=== PATIENT | male | born 1955 | race Caucasian/White ===

== ENCOUNTER 2016-12-02 15:10 | Emergency (ER) | payer OTHER ==
[2016-12-02 15:27] VITALS: BP 135/80
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
== END 2016-12-02 15:59 ==
LOC: UCEAST 15:10
DX: M54.2 Cervicalgia (principal); V43.52XA Car driver injured in collision with other type car in traffic accident, initial encounter; F17.210 Nicotine dependence, cigarettes, uncomplicated
CPT/HCPCS: 99212; G0463

== ENCOUNTER 2021-08-30 21:49 | Inpatient (IN) ==
[2021-08-30] MEDS ORDERED: fentaNYL 250 mcg/5 ml 50 MCG/ML 5 ml VIAL (250 MCG) ONE (21:54)
[2021-08-30] MEDS ORDERED: Midazolam 10 mg/10 ml VIAL 1 mg/ml 10 ml VIAL (10 mg) ONE (21:54)
[2021-08-30] MEDS ORDERED: Succinylcholine 200 mg VIAL 20 mg/ml 10 ml VIAL (200 mg) ONE (21:54)
[2021-08-30] MEDS ORDERED: Ketamine HCL 50 mg/ml 10 ml VIAL (500 MG) ONE (21:54)
[2021-08-30] MEDS ORDERED: Succinylcholine 200 mg VIAL 20 mg/ml 10 ml VIAL (200 mg) IV ONE (22:03)
[2021-08-30] MEDS ORDERED: Etomidate 20 mg/10 ml 2 MG/ML 10 ml VIAL IV ONE (22:03)
[2021-08-30] MEDS ORDERED: Albuterol 0.5% CONC CONTINUOUS NEB.SOL 5 mg/ml 20 ml BOT INH ONE (22:04)
[2021-08-30 22:09] LABS: Hematocrit 47 % (42-52); Hemoglobin 15.6 g/dL (14.0-18.0); Mean Corpuscular HGB Conc 33 g/dL (31-36); Mean Corpuscular Hemoglobin 33 pg (27-31); Mean Corpuscular Volume 98 fL (80-94); Mean Platelet Volume 7.1 fL (7.4-10.4); Platelet Count 255 10^3/uL (150-450); Red Blood Count 4.76 10^6 /uL (4.18-5.48); Red Cell Distribution Width 14 % (10-15); White Blood Count 13.1 10^3/uL (3.5-10.8)
[2021-08-30] MEDS ORDERED: Propofol 10 MG/ML 20 ML BTL ONE (22:16)
[2021-08-30 22:25] LABS: ABS Basophils 0.1 10^3/ul (0-0.2); ABS Lymphocytes 2.9 10^3/ul (1.0-4.8); ABS Monocytes 1.7 10^3/ul (0-0.8); ABS Neutrophils 8.4 10^3/ul (1.5-7.7); Lymphocyte % 22.1 %
[2021-08-30 22:32] LABS: Albumin 4.4 g/dL (3.2-5.2); Calcium 9.9 mg/dL (8.6-10.3); Potassium 4.9 mmol/L (3.5-5.0); Total Bilirubin 0.7 mg/dL (0.2-1.0)
[2021-08-30 22:38] LABS: Albumin/Globulin Ratio 1.3 (1-3); Globulin 3.4 g/dL (2-4); Total Protein 7.8 g/dL (6.4-8.9); eGFR CKD-EPI 87.7 (>60)
[2021-08-30] MEDS ORDERED: Propofol 10 mg/ml 100 ML BTL 100 ML IV ONE (23:00)
[2021-08-30] MEDS ORDERED: Ketamine HCL 50 mg/ml 10 ml VIAL (500 MG) IV ONE (23:00)
[2021-08-30] MEDS ORDERED: Midazolam 5 mg/5 ml VIAL 1 mg/ml 5 ml VIAL (5 mg) IV SLOW PU ONE (23:01)
[2021-08-30 23:32] LABS: High Sensitivity Troponin 1 Hr 19 pg/mL (<20)
[2021-08-30] MEDS ORDERED: NS 0.9% 1000 ml BAG 1,000 ML IV SCH (23:45)
[2021-08-30] MEDS ORDERED: Ondansetron 4 mg VIAL 2 MG/ML 2 ml VIAL IV PRN (23:47)
[2021-08-31] MEDS ORDERED: NS 0.9% 1000 ml BAG 1,000 ML IV ONE (00:26)
[2021-08-31] MEDS ORDERED: Acetaminophen IV 1 GM/100ML 100 ML IV SCH (00:30)
[2021-08-31] MEDS ORDERED: Ketamine HCL 50 mg/ml 10 ml VIAL (500 MG) IV ONE (00:32)
[2021-08-31 00:56] LABS: PCO2 Arterial 65 mmHg (35-45); PO2 Arterial 105 mmHg (80-100)
[2021-08-31] MEDS: Propofol 10 mg/ml 100 ML BTL 100 ML IV ONE ×3 (01:11→11:39)
[2021-08-31] MEDS ORDERED: NS 0.9% 500 ml BAG 500 ML IV ONE (01:36)
[2021-08-31] MEDS ORDERED: Dextran 70/Hypromellose Tears Eye Drops 15 ml BTL (for Artificials Tears) BOTH EYES PRN (01:39)
[2021-08-31] MEDS: cefTRIAXone 1 gm/50 mL D5W 1 GM/50 ML BAG IV SCH ×2 (02:21→22:09)
[2021-08-31] MEDS: Enoxaparin 40 MG/0.4 ML SYR SUBCUT SCH ×2 (02:21→22:10)
[2021-08-31] MEDS: Famotidine IV 10 MG/ML 2 ml VIAL (20 mg) IV SLOW PU SCH ×3 (02:21→22:10)
[2021-08-31 02:47] LABS: Urine Appearance Cloudy; Urine Bilirubin Negative (Negative); Urine Blood 1+ (Negative); Urine Color Amber; Urine Glucose Negative (Negative); Urine Ketones 1+ (Negative); Urine Nitrite Negative (Negative); Urine Protein 2+(100 mg/dL) (Negative); Urine Specific Gravity 1.018 (1.002-1.030); Urine Urobilinogen Positive (Negative)
[2021-08-31 02:53] LABS: Urine Bacteria Absent (Absent); Urine Red Blood Cell 2+(6-10/hpf) (Absent); Urine Squamous Epithelial Cell Present (Absent); Urine White Blood Cell 1+(6-10/hpf) (Absent)
[2021-08-31] MEDS: DOXYcycline 100 MG in NS 0.9% 250 ml 250 ML IVPB SCH ×2 (03:18→09:56)
[2021-08-31] MEDS ORDERED: Dexmedetomidine 200 mcg/2 ml 2 ml VIAL (200 mcg) ONE (04:12)
[2021-08-31] MEDS ORDERED: Dexmedetomidine 1,000 MCG in NS 0.9% 250 ml 240 ML IV SCH (05:00)
[2021-08-31 05:06] LABS: ABS Lymphocytes 0.4 10^3/ul (1.0-4.8); ABS Monocytes 0.4 10^3/ul (0-0.8); Hematocrit 30 % (42-52); Lymphocyte % 5.9 %; Mean Corpuscular HGB Conc 33 g/dL (31-36); Mean Corpuscular Hemoglobin 33 pg (27-31); Mean Corpuscular Volume 99 fL (80-94); Mean Platelet Volume 6.8 fL (7.4-10.4); Platelet Count 176 10^3/uL (150-450); Red Blood Count 3.05 10^6 /uL (4.18-5.48); Red Cell Distribution Width 13 % (10-15); White Blood Count 6.8 10^3/uL (3.5-10.8)
[2021-08-31] MEDS: Chlorhexidine MOUTHWASH 0.12% 15 ML UDC TOPICAL SCH ×5 (05:30→21:00)
[2021-08-31 05:48] LABS: Blood Urea Nitrogen 13 mg/dL (6-24); Glucose 72 mg/dL (70-100); Sodium 143 mmol/L (135-145); eGFR CKD-EPI 122.4 (>60)
[2021-08-31 05:53] LABS: Anion Gap 6 mmol/L (2-11); CO2 Carbon Dioxide 14 mmol/L (22-32); Calcium < 4.0 mg/dL (8.6-10.3); Chloride 123 mmol/L (101-111); Potassium 2.2 mmol/L (3.5-5.0)
[2021-08-31] MEDS: Albuterol/Ipratropium NEB.SOL (2.5/0.5 MG) 3 ML NEB.SOLN INH SCH ×9 (06:29→23:14)
[2021-08-31 07:08] LABS: Calcium 8.7 mg/dL (8.6-10.3); Potassium 4.3 mmol/L (3.5-5.0); eGFR CKD-EPI 91.2 (>60)
[2021-08-31] MEDS: methylPREDNISolone SOD 40 mg/ml 1 ml VIAL IV SCH ×2 (08:48→17:57)
[2021-08-31] MEDS ORDERED: Rocuronium 50 mg VIAL 10 mg/ml 5 ml VIAL (50 mg) ONE (10:35)
[2021-08-31] MEDS: fentaNYL 100 mcg/2 ml 50 MCG/ML VIAL ONE ×2 (10:36→10:51)
[2021-08-31] MEDS ORDERED: Propofol 10 mg/ml 100 ML BTL 100 ML ONE (10:58)
[2021-08-31] MEDS ORDERED: fentaNYL 100 mcg/2 ml 50 MCG/ML VIAL ONE (11:16)
[2021-08-31] MEDS ORDERED: fentaNYL 100 mcg/2 ml 50 MCG/ML VIAL IV SLOW PU ONE (11:54)
[2021-08-31] MEDS ORDERED: Rocuronium 50 mg VIAL 10 mg/ml 5 ml VIAL (50 mg) IV ONE (11:55)
[2021-08-31 12:08] LABS: PCO2 Arterial 64 mmHg (35-45); PO2 Arterial 69 mmHg (80-100)
[2021-08-31 12:16] LABS: Urine Benzodiazepine Screen Presumptive Positive (None Detect); Urine Cannabinoids Screen None Detected (None Detect); Urine Opiates Screen Presumptive Positive (None Detect)
[2021-08-31] MEDS ORDERED: Norepinephrine 16MCG/ML BAGD5W 4,000 MCG/250 ML BAG IV ONE (13:51)
[2021-08-31] MEDS ORDERED: Propofol 10 mg/ml 100 ML BTL 100 ML IV SCH (14:00)
[2021-08-31] MEDS ORDERED: Norepinephrine 16MCG/ML BAG NS 4,000 MCG/250 ML BAG IV SCH (14:00)
[2021-08-31] MEDS ORDERED: PHENYLEPHRINE DRIP IVPREMIX 50 MG/250 ML BAG IV SCH (15:00)
[2021-08-31] MEDS: Azithromycin 500 mg/250 ml NS 500 MG/250 ML BAG IVPB SCH (16:53)
[2021-08-31 16:54] LABS: Calcium 8.8 mg/dL (8.6-10.3); Potassium 4.3 mmol/L (3.5-5.0); eGFR CKD-EPI 83.5 (>60)
[2021-08-31] MEDS: Propofol 10 mg/ml 100 ML BTL 100 ML IV SCH ×2 (16:55→21:01)
[2021-08-31] MEDS: Cisatracurium 100 MG in NS 0.9% 250 ml 200 ML IV SCH (16:59)
[2021-08-31] MEDS: Thiamine 100 MG/ML 2 ml VIAL 500 MG in NS 0.9% 250 ml 250 ML IV SCH (17:57)
[2021-08-31 20:04] LABS: PCO2 Arterial 58 mmHg (35-45); PO2 Arterial 94 mmHg (80-100)
[2021-08-31] MEDS ORDERED: Lactated Ringers 1000 ml BAG 1,000 ML IV SCH (21:00)
[2021-09-01] MEDS: Chlorhexidine MOUTHWASH 0.12% 15 ML UDC TOPICAL SCH ×7 (00:08→23:44)
[2021-09-01] MEDS: methylPREDNISolone SOD 40 mg/ml 1 ml VIAL IV SCH ×3 (00:08→16:54)
[2021-09-01] MEDS: Propofol 10 mg/ml 100 ML BTL 100 ML IV SCH ×3 (00:20→19:55)
[2021-09-01] MEDS: Albuterol/Ipratropium NEB.SOL (2.5/0.5 MG) 3 ML NEB.SOLN INH SCH ×6 (03:58→23:37)
[2021-09-01] MEDS ORDERED: LORazepam 2 mg VIAL 1 ml IV PUSH ONE (05:46)
[2021-09-01] MEDS ORDERED: Lorazepam PYXIS KEY PRN ×3 (05:46→09:12)
[2021-09-01] MEDS ORDERED: LORazepam 2 mg VIAL 1 ml ONE (05:52)
[2021-09-01] MEDS ORDERED: Lorazepam PYXIS KEY ONE (05:52)
[2021-09-01 06:40] LABS: Venous Bicarbonate HCO3 27.2 mmol/L (24-28)
[2021-09-01 06:49] LABS: ABS Lymphocytes 0.7 10^3/ul (1.0-4.8); ABS Monocytes 0.8 10^3/ul (0-0.8); ABS Neutrophils 8.4 10^3/ul (1.5-7.7); Hematocrit 36 % (42-52); Hemoglobin 12.4 g/dL (14.0-18.0); Lymphocyte % 7.3 %; Mean Corpuscular HGB Conc 34 g/dL (31-36); Mean Corpuscular Hemoglobin 34 pg (27-31); Mean Corpuscular Volume 99 fL (80-94); Mean Platelet Volume 7.2 fL (7.4-10.4); Platelet Count 227 10^3/uL (150-450); Red Blood Count 3.69 10^6 /uL (4.18-5.48); Red Cell Distribution Width 14 % (10-15); White Blood Count 9.9 10^3/uL (3.5-10.8)
[2021-09-01 07:20] LABS: Albumin 3.3 g/dL (3.2-5.2); Albumin/Globulin Ratio 1.4 (1-3); Calcium 8.8 mg/dL (8.6-10.3); Globulin 2.4 g/dL (2-4); Potassium 4.2 mmol/L (3.5-5.0); Total Bilirubin 0.3 mg/dL (0.2-1.0); Total Protein 5.7 g/dL (6.4-8.9); eGFR CKD-EPI 103.3 (>60)
[2021-09-01 08:03] LABS: Magnesium 1.9 mg/dL (1.9-2.7)
[2021-09-01] MEDS: Famotidine IV 10 MG/ML 2 ml VIAL (20 mg) IV SLOW PU SCH ×2 (08:17→20:17)
[2021-09-01] MEDS: Thiamine 100 MG/ML 2 ml VIAL 500 MG in NS 0.9% 250 ml 250 ML IV SCH (08:18)
[2021-09-01] MEDS ORDERED: Magnesium Sulfate IV 1GM/100ML 1 GM/100 ML BAG IV ONE (08:29)
[2021-09-01] MEDS: Multivitamins ADULT w/MIN LIQ 15 ML UDC PO SCH (10:46)
[2021-09-01] MEDS: fentaNYL 100 mcg/2 ml 50 MCG/ML VIAL IV SLOW PU PRN ×4 (13:05→23:44)
[2021-09-01] MEDS: Cisatracurium 100 MG in NS 0.9% 250 ml 200 ML IV SCH (13:22)
[2021-09-01] MEDS: LORazepam 2 mg VIAL 1 ml IV PUSH PRN ×4 (13:48→23:44)
[2021-09-01] MEDS: Azithromycin 500 mg/250 ml NS 500 MG/250 ML BAG IVPB SCH (15:36)
[2021-09-01] MEDS: Levalbuterol 1.25MG/0.5ML NEB.SOL INH PRN ×2 (17:50→21:41)
[2021-09-01] MEDS: Metoprolol Tartrate 5 mg VIAL 5 ml VIAL (1 mg/ml) IV PRN (19:56)
[2021-09-01] MEDS: Enoxaparin 40 MG/0.4 ML SYR SUBCUT SCH (20:17)
[2021-09-01] MEDS: cefTRIAXone 1 gm/50 mL D5W 1 GM/50 ML BAG IV SCH (23:43)
[2021-09-02] MEDS: methylPREDNISolone SOD 40 mg/ml 1 ml VIAL IV SCH ×3 (00:35→17:12)
[2021-09-02] MEDS: LORazepam 2 mg VIAL 1 ml IV PUSH PRN ×3 (02:47→23:28)
[2021-09-02] MEDS: Metoprolol Tartrate 5 mg VIAL 5 ml VIAL (1 mg/ml) IV PRN ×2 (02:47→23:28)
[2021-09-02] MEDS: Albuterol/Ipratropium NEB.SOL (2.5/0.5 MG) 3 ML NEB.SOLN INH SCH ×5 (03:17→23:57)
[2021-09-02] MEDS: Chlorhexidine MOUTHWASH 0.12% 15 ML UDC TOPICAL SCH ×5 (05:07→19:47)
[2021-09-02 05:26] LABS: ABS Lymphocytes 0.6 10^3/ul (1.0-4.8); ABS Monocytes 0.8 10^3/ul (0-0.8); ABS Neutrophils 11.3 10^3/ul (1.5-7.7); Hematocrit 37 % (42-52); Hemoglobin 12.2 g/dL (14.0-18.0); Lymphocyte % 4.3 %; Mean Corpuscular HGB Conc 33 g/dL (31-36); Mean Corpuscular Hemoglobin 33 pg (27-31); Mean Corpuscular Volume 98 fL (80-94); Mean Platelet Volume 6.9 fL (7.4-10.4); Platelet Count 223 10^3/uL (150-450); Red Blood Count 3.74 10^6 /uL (4.18-5.48); Red Cell Distribution Width 14 % (10-15); White Blood Count 12.7 10^3/uL (3.5-10.8)
[2021-09-02 06:30] LABS: Albumin 3.1 g/dL (3.2-5.2); Albumin/Globulin Ratio 1.3 (1-3); Globulin 2.3 g/dL (2-4); Magnesium 2.1 mg/dL (1.9-2.7); Potassium 4.4 mmol/L (3.5-5.0); Total Bilirubin 0.3 mg/dL (0.2-1.0); Total Protein 5.4 g/dL (6.4-8.9); eGFR CKD-EPI 106.9 (>60)
[2021-09-02] MEDS: Propofol 10 mg/ml 100 ML BTL 100 ML IV SCH ×3 (06:58→19:48)
[2021-09-02] MEDS: Cisatracurium 100 MG in NS 0.9% 250 ml 200 ML IV SCH (08:06)
[2021-09-02] MEDS: Famotidine IV 10 MG/ML 2 ml VIAL (20 mg) IV SLOW PU SCH ×2 (08:20→22:24)
[2021-09-02] MEDS: Multivitamins ADULT w/MIN LIQ 15 ML UDC PO SCH (08:21)
[2021-09-02] MEDS: fentaNYL 100 mcg/2 ml 50 MCG/ML VIAL IV SLOW PU PRN ×2 (09:38→17:13)
[2021-09-02] MEDS: Thiamine 100 MG/ML 2 ml VIAL 500 MG in NS 0.9% 250 ml 250 ML IV SCH (09:38)
[2021-09-02] MEDS: Azithromycin 500 mg/250 ml NS 500 MG/250 ML BAG IVPB SCH (15:08)
[2021-09-02] MEDS: Enoxaparin 40 MG/0.4 ML SYR SUBCUT SCH (22:24)
[2021-09-02] MEDS: cefTRIAXone 1 gm/50 mL D5W 1 GM/50 ML BAG IV SCH (22:26)
[2021-09-03] MEDS: fentaNYL 100 mcg/2 ml 50 MCG/ML VIAL IV SLOW PU PRN ×5 (00:09→18:37)
[2021-09-03] MEDS ORDERED: Propofol 10 mg/ml 100 ML BTL 100 ML IV SCH (00:17)
[2021-09-03] MEDS: methylPREDNISolone SOD 40 mg/ml 1 ml VIAL IV SCH ×3 (01:00→16:09)
[2021-09-03] MEDS: Chlorhexidine MOUTHWASH 0.12% 15 ML UDC TOPICAL SCH ×6 (01:00→20:27)
[2021-09-03 04:34] LABS: ABS Lymphocytes 0.6 10^3/ul (1.0-4.8); ABS Monocytes 0.9 10^3/ul (0-0.8); ABS Neutrophils 11.1 10^3/ul (1.5-7.7); Hematocrit 38 % (42-52); Hemoglobin 12.6 g/dL (14.0-18.0); Lymphocyte % 4.5 %; Mean Corpuscular HGB Conc 33 g/dL (31-36); Mean Corpuscular Hemoglobin 32 pg (27-31); Mean Corpuscular Volume 98 fL (80-94); Nucleated Red Blood Cells % 0.1; Platelet Count 236 10^3/uL (150-450); Red Blood Count 3.89 10^6 /uL (4.18-5.48); Red Cell Distribution Width 14 % (10-15); White Blood Count 12.6 10^3/uL (3.5-10.8)
[2021-09-03] MEDS: LORazepam 2 mg VIAL 1 ml IV PUSH PRN ×2 (04:35→10:47)
[2021-09-03 05:00] LABS: Albumin 3.2 g/dL (3.2-5.2); Albumin/Globulin Ratio 1.3 (1-3); Globulin 2.5 g/dL (2-4); Magnesium 2.2 mg/dL (1.9-2.7); Potassium 4.4 mmol/L (3.5-5.0); Total Bilirubin 0.3 mg/dL (0.2-1.0); Total Protein 5.7 g/dL (6.4-8.9)
[2021-09-03] MEDS: Levalbuterol 1.25MG/0.5ML NEB.SOL INH PRN (05:55)
[2021-09-03] MEDS: Metoprolol Tartrate 5 mg VIAL 5 ml VIAL (1 mg/ml) IV PRN ×4 (07:48→21:41)
[2021-09-03] MEDS: Albuterol/Ipratropium NEB.SOL (2.5/0.5 MG) 3 ML NEB.SOLN INH SCH ×3 (07:53→20:52)
[2021-09-03] MEDS: Thiamine 100 MG/ML 2 ml VIAL 500 MG in NS 0.9% 250 ml 250 ML IV SCH (08:10)
[2021-09-03] MEDS: Multivitamins ADULT w/MIN LIQ 15 ML UDC PO SCH (08:10)
[2021-09-03] MEDS: Famotidine IV 10 MG/ML 2 ml VIAL (20 mg) IV SLOW PU SCH ×2 (08:11→20:27)
[2021-09-03] MEDS ORDERED: Furosemide 20 mg/2 ml IV VIAL IV SLOW PU ONE (10:43)
[2021-09-03] MEDS: hydrALAZINE 20 mg/ml 1 ML Vial IV IV SLOW PU PRN ×2 (13:34→20:08)
[2021-09-03] MEDS: Azithromycin 500 mg/250 ml NS 500 MG/250 ML BAG IVPB SCH (14:43)
[2021-09-03] MEDS: Enoxaparin 40 MG/0.4 ML SYR SUBCUT SCH (20:26)
[2021-09-03] MEDS ORDERED: hydrALAZINE 20 mg/ml 1 ML Vial IV IV SLOW PU PRN (21:33)
[2021-09-03] MEDS: cefTRIAXone 1 gm/50 mL D5W 1 GM/50 ML BAG IV SCH (21:41)
[2021-09-04] MEDS ORDERED: Furosemide 40 mg/4 ml IV VIAL IV SLOW PU ONE (00:02)
[2021-09-04] MEDS: fentaNYL 100 mcg/2 ml 50 MCG/ML VIAL IV SLOW PU PRN (00:22)
[2021-09-04] MEDS: Chlorhexidine MOUTHWASH 0.12% 15 ML UDC TOPICAL SCH ×6 (00:43→20:28)
[2021-09-04] MEDS: methylPREDNISolone SOD 40 mg/ml 1 ml VIAL IV SCH ×4 (00:43→16:37)
[2021-09-04] MEDS: Albuterol/Ipratropium NEB.SOL (2.5/0.5 MG) 3 ML NEB.SOLN INH SCH ×2 (02:06→08:19)
[2021-09-04] MEDS ORDERED: Artificial Tear OPHTH.OINT 3.5 GM BOTH EYES PRN (02:22)
[2021-09-04 05:25] LABS: Hematocrit 45 % (42-52); Hemoglobin 14.7 g/dL (14.0-18.0); Mean Corpuscular HGB Conc 33 g/dL (31-36); Mean Corpuscular Hemoglobin 32 pg (27-31); Mean Corpuscular Volume 97 fL (80-94); Platelet Count 281 10^3/uL (150-450); Red Blood Count 4.56 10^6 /uL (4.18-5.48); Red Cell Distribution Width 14 % (10-15); White Blood Count 15.7 10^3/uL (3.5-10.8)
[2021-09-04 05:26] LABS: ABS Lymphocytes 1.1 10^3/ul (1.0-4.8); ABS Monocytes 1.6 10^3/ul (0-0.8); ABS Neutrophils 12.9 10^3/ul (1.5-7.7); Lymphocyte % 7.2 %
[2021-09-04 06:18] LABS: Albumin 3.5 g/dL (3.2-5.2); Albumin/Globulin Ratio 1.2 (1-3); Calcium 9.7 mg/dL (8.6-10.3); Globulin 2.9 g/dL (2-4); Magnesium 2.2 mg/dL (1.9-2.7); Potassium 4.6 mmol/L (3.5-5.0); Total Bilirubin 0.3 mg/dL (0.2-1.0); Total Protein 6.4 g/dL (6.4-8.9); eGFR CKD-EPI 103.8 (>60)
[2021-09-04] MEDS: Multivitamins ADULT w/MIN LIQ 15 ML UDC PO SCH (08:01)
[2021-09-04] MEDS: Famotidine IV 10 MG/ML 2 ml VIAL (20 mg) IV SLOW PU SCH ×2 (08:02→20:28)
[2021-09-04] MEDS ORDERED: Albuterol/Ipratropium NEB.SOL (2.5/0.5 MG) 3 ML NEB.SOLN INH PRN (08:19)
[2021-09-04] MEDS: Metoprolol Tartrate 5 mg VIAL 5 ml VIAL (1 mg/ml) IV PRN (10:33)
[2021-09-04] MEDS ORDERED: Metoprolol Tartrate 5 mg VIAL 5 ml VIAL (1 mg/ml) IV ONE (12:21)
[2021-09-04] MEDS: Azithromycin 500 mg/250 ml NS 500 MG/250 ML BAG IVPB SCH (14:52)
[2021-09-04] MEDS: Thiamine 100 MG/ML 2 ml VIAL 250 MG in NS 0.9% 100 ml BAG 100 ML IV SCH (16:44)
[2021-09-04] MEDS ORDERED: NS 0.9% 100 ml BAG 100 ML ONE (20:19)
[2021-09-04] MEDS: cefTRIAXone 1 gm/50 mL D5W 1 GM/50 ML BAG IV SCH (20:28)
[2021-09-04] MEDS: Enoxaparin 40 MG/0.4 ML SYR SUBCUT SCH (20:28)
[2021-09-05] MEDS: Chlorhexidine MOUTHWASH 0.12% 15 ML UDC TOPICAL SCH ×6 (00:37→20:36)
[2021-09-05] MEDS: methylPREDNISolone SOD 40 mg/ml 1 ml VIAL IV SCH ×2 (00:37→08:11)
[2021-09-05 04:29] LABS: Hematocrit 47 % (42-52); Hemoglobin 15.6 g/dL (14.0-18.0); Mean Corpuscular HGB Conc 33 g/dL (31-36); Mean Corpuscular Hemoglobin 32 pg (27-31); Mean Corpuscular Volume 98 fL (80-94); Mean Platelet Volume 6.9 fL (7.4-10.4); Platelet Count 290 10^3/uL (150-450); Red Blood Count 4.86 10^6 /uL (4.18-5.48); Red Cell Distribution Width 14 % (10-15); White Blood Count 15.3 10^3/uL (3.5-10.8)
[2021-09-05 05:00] LABS: Albumin 3.2 g/dL (3.2-5.2); Albumin/Globulin Ratio 1.1 (1-3); Calcium 9.7 mg/dL (8.6-10.3); Globulin 2.8 g/dL (2-4); Potassium 4.7 mmol/L (3.5-5.0); Total Bilirubin 0.3 mg/dL (0.2-1.0); eGFR CKD-EPI 109.2 (>60)
[2021-09-05] MEDS: Multivitamins ADULT w/MIN LIQ 15 ML UDC PO SCH (08:11)
[2021-09-05] MEDS: Famotidine IV 10 MG/ML 2 ml VIAL (20 mg) IV SLOW PU SCH ×2 (08:12→21:23)
[2021-09-05 08:19] LABS: ABS Lymphocytes 1.2 10^3/ul (1.0-4.8); ABS Monocytes 1.4 10^3/ul (0-0.8); ABS Neutrophils 12.6 10^3/ul (1.5-7.7); Eosinophil % 0.1 %; Lymphocyte % 8.1 %
[2021-09-05] MEDS: Thiamine 100 MG/ML 2 ml VIAL 250 MG in NS 0.9% 100 ml BAG 100 ML IV SCH (17:16)
[2021-09-05] MEDS ORDERED: Dexmedetomidine 1,000 MCG in NS 0.9% 250 ml 240 ML IV SCH (18:00)
[2021-09-05] MEDS: Enoxaparin 40 MG/0.4 ML SYR SUBCUT SCH (21:23)
[2021-09-06] MEDS: Chlorhexidine MOUTHWASH 0.12% 15 ML UDC TOPICAL SCH ×5 (00:45→14:02)
[2021-09-06 05:25] LABS: Hematocrit 43 % (42-52); Hemoglobin 14.4 g/dL (14.0-18.0); Mean Corpuscular HGB Conc 34 g/dL (31-36); Mean Corpuscular Hemoglobin 33 pg (27-31); Mean Corpuscular Volume 97 fL (80-94); Mean Platelet Volume 7.1 fL (7.4-10.4); Platelet Count 271 10^3/uL (150-450); Red Blood Count 4.43 10^6 /uL (4.18-5.48); Red Cell Distribution Width 14 % (10-15); White Blood Count 16.2 10^3/uL (3.5-10.8)
[2021-09-06 05:29] LABS: ABS Eosinophils 0.1 10^3/ul (0-0.6); ABS Lymphocytes 1.9 10^3/ul (1.0-4.8); ABS Monocytes 1.7 10^3/ul (0-0.8); ABS Neutrophils 12.4 10^3/ul (1.5-7.7); Eosinophil % 0.7 %; Lymphocyte % 11.7 %
[2021-09-06 05:45] LABS: Albumin 2.9 g/dL (3.2-5.2); Albumin/Globulin Ratio 1.2 (1-3); Calcium 9.4 mg/dL (8.6-10.3); Globulin 2.5 g/dL (2-4); Potassium 4.4 mmol/L (3.5-5.0); Total Bilirubin 0.3 mg/dL (0.2-1.0); Total Protein 5.4 g/dL (6.4-8.9); eGFR CKD-EPI 105.8 (>60)
[2021-09-06] MEDS ORDERED: Lactated Ringers 1000 ml BAG 1,000 ML IV ONE (06:20)
[2021-09-06] MEDS: Famotidine IV 10 MG/ML 2 ml VIAL (20 mg) IV SLOW PU SCH ×2 (07:40→21:42)
[2021-09-06] MEDS: Multivitamins ADULT w/MIN LIQ 15 ML UDC PO SCH (09:05)
[2021-09-06 11:13] LABS: PCO2 Arterial 46 mmHg (35-45); PO2 Arterial 66 mmHg (80-100)
[2021-09-06] MEDS: Thiamine 100 MG/ML 2 ml VIAL 250 MG in NS 0.9% 100 ml BAG 100 ML IV SCH (16:03)
[2021-09-06] MEDS: Enoxaparin 40 MG/0.4 ML SYR SUBCUT SCH (21:42)
[2021-09-07] MEDS: LORazepam 2 mg VIAL 1 ml IV PUSH PRN (00:34)
[2021-09-07] MEDS: Chlorhexidine MOUTHWASH 0.12% 15 ML UDC TOPICAL SCH (01:21)
[2021-09-07 06:25] LABS: Hematocrit 41 % (42-52); Hemoglobin 13.4 g/dL (14.0-18.0); Mean Corpuscular HGB Conc 33 g/dL (31-36); Mean Corpuscular Hemoglobin 32 pg (27-31); Mean Corpuscular Volume 97 fL (80-94); Mean Platelet Volume 7.4 fL (7.4-10.4); Platelet Count 282 10^3/uL (150-450); Red Blood Count 4.15 10^6 /uL (4.18-5.48); Red Cell Distribution Width 14 % (10-15); White Blood Count 16.8 10^3/uL (3.5-10.8)
[2021-09-07 06:26] LABS: ABS Eosinophils 0.1 10^3/ul (0-0.6); ABS Lymphocytes 2.1 10^3/ul (1.0-4.8); ABS Monocytes 1.9 10^3/ul (0-0.8); ABS Neutrophils 12.8 10^3/ul (1.5-7.7); Eosinophil % 0.4 %; Lymphocyte % 12.3 %
[2021-09-07 06:47] LABS: Albumin 2.9 g/dL (3.2-5.2); Albumin/Globulin Ratio 1.3 (1-3); Globulin 2.3 g/dL (2-4); Potassium 4.4 mmol/L (3.5-5.0); Total Bilirubin 0.5 mg/dL (0.2-1.0); Total Protein 5.2 g/dL (6.4-8.9); eGFR CKD-EPI 103.8 (>60)
[2021-09-07] MEDS: Famotidine IV 10 MG/ML 2 ml VIAL (20 mg) IV SLOW PU SCH ×2 (08:07→22:00)
[2021-09-07] MEDS: Multivitamins ADULT w/MIN LIQ 15 ML UDC PO SCH ×2 (08:08→13:43)
[2021-09-07] MEDS ORDERED: Metoprolol Tartrate 5 mg VIAL 5 ml VIAL (1 mg/ml) IV PRN ×2 (08:15→09:57)
[2021-09-07] MEDS ORDERED: Piperacillin/Tazobac ADVAN 3.375 GM in NS 0.9% 100 ml BAG 100 ML IV ONE (09:58)
[2021-09-07] MEDS ORDERED: Zosyn per Pharmacy NOTE FOLLOW UP SCH (10:00)
[2021-09-07] MEDS: ZOSYN 3.375 GM Q8H per EXTENDED INFUSION IV SCH ×2 (15:03→22:42)
[2021-09-07] MEDS: Thiamine 100 MG/ML 2 ml VIAL 250 MG in NS 0.9% 100 ml BAG 100 ML IV SCH (15:03)
[2021-09-07] MEDS: Enoxaparin 40 MG/0.4 ML SYR SUBCUT SCH (22:00)
[2021-09-08 05:51] LABS: Hematocrit 42 % (42-52); Hemoglobin 13.9 g/dL (14.0-18.0); Mean Corpuscular HGB Conc 33 g/dL (31-36); Mean Corpuscular Hemoglobin 32 pg (27-31); Mean Corpuscular Volume 97 fL (80-94); Mean Platelet Volume 7.3 fL (7.4-10.4); Platelet Count 251 10^3/uL (150-450); Red Blood Count 4.31 10^6 /uL (4.18-5.48); Red Cell Distribution Width 14 % (10-15); White Blood Count 17.8 10^3/uL (3.5-10.8)
[2021-09-08 05:54] LABS: ABS Basophils 0.1 10^3/ul (0-0.2); ABS Eosinophils 0.1 10^3/ul (0-0.6); ABS Lymphocytes 1.8 10^3/ul (1.0-4.8); ABS Monocytes 1.9 10^3/ul (0-0.8); ABS Neutrophils 13.8 10^3/ul (1.5-7.7); Eosinophil % 0.8 %; Lymphocyte % 10.2 %
[2021-09-08 06:17] LABS: Albumin 2.9 g/dL (3.2-5.2); Albumin/Globulin Ratio 1.1 (1-3); Calcium 9.1 mg/dL (8.6-10.3); Globulin 2.6 g/dL (2-4); Total Bilirubin 0.5 mg/dL (0.2-1.0); Total Protein 5.5 g/dL (6.4-8.9); eGFR CKD-EPI 101.4 (>60)
[2021-09-08] MEDS ORDERED: LORazepam 2 mg VIAL 1 ml IV PUSH PRN (08:49)
[2021-09-08] MEDS: ZOSYN 3.375 GM Q8H per EXTENDED INFUSION IV SCH ×3 (09:38→22:56)
[2021-09-08] MEDS: Multivitamins ADULT w/MIN LIQ 15 ML UDC PO SCH (11:09)
[2021-09-08] MEDS: FOLIC ACID 1 MG IV SCH (11:12)
[2021-09-08] MEDS: SODIUM CHLORIDE IV SCH (11:12)
[2021-09-08] MEDS: [UNRECOGNIZED DRUG - OTHER] IV SCH (11:12)
[2021-09-08] MEDS: MULTIVITAMIN IV SCH (11:12)
[2021-09-08] MEDS: THIAMINE IV SCH (11:12)
[2021-09-08] MEDS: Famotidine IV 10 MG/ML 2 ml VIAL (20 mg) IV SLOW PU SCH ×2 (11:19→21:47)
[2021-09-08 12:25] LABS: PCO2 Arterial 44 mmHg (35-45); PO2 Arterial 100 mmHg (80-100)
[2021-09-08] MEDS: Levalbuterol 1.25MG/0.5ML NEB.SOL INH PRN (19:21)
[2021-09-08] MEDS: Enoxaparin 40 MG/0.4 ML SYR SUBCUT SCH (21:47)
[2021-09-09 06:21] LABS: ABS Eosinophils 0.1 10^3/ul (0-0.6); ABS Monocytes 1.3 10^3/ul (0-0.8); ABS Neutrophils 8.4 10^3/ul (1.5-7.7); Eosinophil % 0.6 %; Hematocrit 38 % (42-52); Hemoglobin 12.7 g/dL (14.0-18.0); Lymphocyte % 16.8 %; Mean Corpuscular HGB Conc 33 g/dL (31-36); Mean Corpuscular Hemoglobin 32 pg (27-31); Mean Corpuscular Volume 97 fL (80-94); Mean Platelet Volume 7.2 fL (7.4-10.4); Platelet Count 301 10^3/uL (150-450); Red Blood Count 3.95 10^6 /uL (4.18-5.48); Red Cell Distribution Width 14 % (10-15); White Blood Count 11.7 10^3/uL (3.5-10.8)
[2021-09-09 06:55] LABS: Albumin 2.9 g/dL (3.2-5.2); Albumin/Globulin Ratio 1.2 (1-3); Globulin 2.5 g/dL (2-4); Potassium 3.7 mmol/L (3.5-5.0); Total Bilirubin 0.5 mg/dL (0.2-1.0); Total Protein 5.4 g/dL (6.4-8.9); eGFR CKD-EPI 101.9 (>60)
[2021-09-09] MEDS: ZOSYN 3.375 GM Q8H per EXTENDED INFUSION IV SCH ×3 (07:47→22:43)
[2021-09-09] MEDS ORDERED: Potassium Chlor 20 meq TAB.ER PO ONE (09:03)
[2021-09-09] MEDS: Famotidine IV 10 MG/ML 2 ml VIAL (20 mg) IV SLOW PU SCH (09:19)
[2021-09-09] MEDS: [UNRECOGNIZED DRUG - OTHER] IV SCH (11:20)
[2021-09-09] MEDS: SODIUM CHLORIDE IV SCH (11:20)
[2021-09-09] MEDS: THIAMINE IV SCH (11:20)
[2021-09-09] MEDS: MULTIVITAMIN IV SCH (11:20)
[2021-09-09] MEDS: FOLIC ACID 1 MG IV SCH (11:20)
[2021-09-09] MEDS: Nystatin TOP POWDER 15 GM BTL TOPICAL SCH ×2 (11:30→20:34)
[2021-09-09] MEDS ORDERED: Levalbuterol HFA INHALER MDI INH PRN (13:44)
[2021-09-09] MEDS: IPRATROPIUM INH SCH ×2 (15:49→20:26)
[2021-09-09] MEDS: Enoxaparin 40 MG/0.4 ML SYR SUBCUT SCH (20:32)
[2021-09-10 04:56] LABS: ABS Eosinophils 0.1 10^3/ul (0-0.6); ABS Lymphocytes 2.3 10^3/ul (1.0-4.8); ABS Monocytes 1.3 10^3/ul (0-0.8); Eosinophil % 0.5 %; Hematocrit 40 % (42-52); Hemoglobin 13.4 g/dL (14.0-18.0); Lymphocyte % 16.8 %; Mean Corpuscular HGB Conc 34 g/dL (31-36); Mean Corpuscular Hemoglobin 33 pg (27-31); Mean Corpuscular Volume 97 fL (80-94); Mean Platelet Volume 7.1 fL (7.4-10.4); Platelet Count 347 10^3/uL (150-450); Red Cell Distribution Width 14 % (10-15); White Blood Count 13.7 10^3/uL (3.5-10.8)
[2021-09-10 05:04] LABS: CO2 Carbon Dioxide 23 mmol/L (22-32); Chloride 108 mmol/L (101-111); Sodium 140 mmol/L (135-145)
[2021-09-10 05:06] LABS: Anion Gap 9 mmol/L (2-11)
[2021-09-10 05:10] LABS: ALT 35 U/L (7-52); Albumin/Globulin Ratio 1.1 (1-3); Alkaline Phosphatase 55 U/L (35-149); Blood Urea Nitrogen 23 mg/dL (6-24); Globulin 2.8 g/dL (2-4); Glucose 80 mg/dL (70-100); Total Protein 5.8 g/dL (6.4-8.9); eGFR CKD-EPI 108.6 (>60)
[2021-09-10] MEDS: ZOSYN 3.375 GM Q8H per EXTENDED INFUSION IV SCH ×3 (06:25→23:25)
[2021-09-10] MEDS: IPRATROPIUM INH SCH ×3 (07:40→15:15)
[2021-09-10 08:39] LABS: Magnesium 1.8 mg/dL (1.9-2.7); Potassium Redraw 3.7 mmol/L (3.5-5.0)
[2021-09-10] MEDS: Nystatin TOP POWDER 15 GM BTL TOPICAL SCH ×2 (10:00→22:04)
[2021-09-10] MEDS ORDERED: LORazepam 2 mg VIAL 1 ml IV PUSH PRN (11:41)
[2021-09-10] MEDS ORDERED: Lorazepam PYXIS KEY PRN (11:41)
[2021-09-10] MEDS: MULTIVITAMIN IV SCH (13:50)
[2021-09-10] MEDS: FOLIC ACID 1 MG IV SCH (13:50)
[2021-09-10] MEDS: SODIUM CHLORIDE IV SCH (13:50)
[2021-09-10] MEDS: THIAMINE IV SCH (13:50)
[2021-09-10] MEDS: [UNRECOGNIZED DRUG - OTHER] IV SCH (13:50)
[2021-09-10] MEDS ORDERED: Ipratropium HFA INHALER(NF) (ALTERNATIVE = NEBS) INH PRN (15:14)
[2021-09-10] MEDS: Enoxaparin 40 MG/0.4 ML SYR SUBCUT SCH (22:02)
[2021-09-11] MEDS: ZOSYN 3.375 GM Q8H per EXTENDED INFUSION IV SCH ×3 (06:28→23:34)
[2021-09-11 06:53] LABS: Hematocrit 37 % (42-52); Hemoglobin 12.7 g/dL (14.0-18.0); Mean Corpuscular HGB Conc 35 g/dL (31-36); Mean Corpuscular Hemoglobin 33 pg (27-31); Mean Corpuscular Volume 96 fL (80-94); Mean Platelet Volume 7.3 fL (7.4-10.4); Platelet Count 365 10^3/uL (150-450); Red Blood Count 3.84 10^6 /uL (4.18-5.48); Red Cell Distribution Width 14 % (10-15); White Blood Count 11.1 10^3/uL (3.5-10.8)
[2021-09-11 07:10] LABS: Anion Gap 6 mmol/L (2-11); Blood Urea Nitrogen 21 mg/dL (6-24); CO2 Carbon Dioxide 28 mmol/L (22-32); Calcium 8.6 mg/dL (8.6-10.3); Chloride 110 mmol/L (101-111); Glucose 137 mg/dL (70-100); Magnesium 1.7 mg/dL (1.9-2.7); Potassium 3.5 mmol/L (3.5-5.0); Sodium 144 mmol/L (135-145); eGFR CKD-EPI 102.8 (>60)
[2021-09-11] MEDS: Nystatin TOP POWDER 15 GM BTL TOPICAL SCH ×2 (09:44→23:35)
[2021-09-11] MEDS: FOLIC ACID 1 MG IV SCH (11:46)
[2021-09-11] MEDS: SODIUM CHLORIDE IV SCH (11:46)
[2021-09-11] MEDS: [UNRECOGNIZED DRUG - OTHER] IV SCH (11:46)
[2021-09-11] MEDS: THIAMINE IV SCH (11:46)
[2021-09-11] MEDS: MULTIVITAMIN IV SCH (11:46)
[2021-09-11 17:15] LABS: Folate > 20.00 ng/mL (5.90-24.80)
[2021-09-11 17:16] LABS: Vitamin B12 1047 pg/mL (180-914)
[2021-09-11] MEDS: Enoxaparin 40 MG/0.4 ML SYR SUBCUT SCH (22:16)
[2021-09-12 06:59] LABS: Hematocrit 36 % (42-52); Mean Corpuscular HGB Conc 33 g/dL (31-36); Mean Corpuscular Hemoglobin 33 pg (27-31); Mean Corpuscular Volume 98 fL (80-94); Mean Platelet Volume 6.9 fL (7.4-10.4); Platelet Count 346 10^3/uL (150-450); Red Cell Distribution Width 14 % (10-15); White Blood Count 11.7 10^3/uL (3.5-10.8)
[2021-09-12] MEDS: ZOSYN 3.375 GM Q8H per EXTENDED INFUSION IV SCH (07:06)
[2021-09-12] MEDS ORDERED: Magnesium Sulfate IV 3 GM in NS 0.9% 100 ml BAG 100 ML IVPB ONE (07:12)
[2021-09-12 07:19] LABS: Calcium 8.7 mg/dL (8.6-10.3); Magnesium 1.7 mg/dL (1.9-2.7); Potassium 3.6 mmol/L (3.5-5.0); eGFR CKD-EPI 102.3 (>60)
[2021-09-12] MEDS ORDERED: Magnesium Sulfate 2 GM IV (Premix) IVPB ONE (08:00)
[2021-09-12] MEDS: Nystatin TOP POWDER 15 GM BTL TOPICAL SCH (08:42)
[2021-09-12] MEDS ORDERED: Magnesium Sulfate 1 GM IV 1 GM/100 ML BAG IV ONE (09:00)
[2021-09-12 11:28] VITALS: BP 133/66
== END 2021-09-12 13:20 | disposition home or self-care (01) | DRG 870 ==
LOC: ED 21:49 → EDHOLD 23:48 → SUATTDRO 23:48 → ICU 08-31 00:40 → MED 09-09 11:22
PROVIDERS: ADMIT Hospitalist; ATTEND Internal Medicine

== ENCOUNTER 2022-05-15 04:12 | Inpatient (IN) ==
[2022-05-15] MEDS ORDERED: Albuterol/Ipratropium NEB.SOL (2.5/0.5 MG) 3 ML NEB.SOLN ONE (04:23)
[2022-05-15] MEDS ORDERED: cefTRIAXone 1 gm/50 mL D5W 1 GM/50 ML BAG IV ONE (04:24)
[2022-05-15] MEDS ORDERED: Albuterol/Ipratropium NEB.SOL (2.5/0.5 MG) 3 ML NEB.SOLN INH ONE (04:27)
[2022-05-15] MEDS ORDERED: methylPREDNISolone SOD SUCC 125 mg 2 ML VIAL IV ONE (04:28)
[2022-05-15 04:55] LABS: PCO2 Arterial 45 mmHg (35-45); PO2 Arterial 89 mmHg (80-100)
[2022-05-15] MEDS ORDERED: Albuterol 0.5% CONC CONTINUOUS NEB.SOL 5 mg/ml 20 ml BOT INH SCH (05:00)
[2022-05-15] MEDS: Albuterol 2.5mg/3 ml (0.083%) NEB.SOLN INH SCH ×3 (05:08→06:18)
[2022-05-15 05:16] LABS: ABS Lymphocytes 2.1 10^3/ul (1.0-4.8); ABS Neutrophils 10.7 10^3/ul (1.5-7.7); Eosinophil % 0.1 %; Hematocrit 45 % (42-52); Hemoglobin 15.3 g/dL (14.0-18.0); Lymphocyte % 13.9 %; Mean Corpuscular HGB Conc 34 g/dL (31-36); Mean Corpuscular Hemoglobin 33 pg (27-31); Mean Corpuscular Volume 97 fL (80-94); Mean Platelet Volume 7.3 fL (7.4-10.4); Nucleated Red Blood Cells % 0.1; Platelet Count 322 10^3/uL (150-450); Red Blood Count 4.63 10^6 /uL (4.18-5.48); Red Cell Distribution Width 13 % (10-15); White Blood Count 14.7 10^3/uL (3.5-10.8)
[2022-05-15 05:24] LABS: Activated Partial Thrombo Time 25.1 seconds (26.0-38.0); INR 1.05 (0.88-1.18)
[2022-05-15] MEDS ORDERED: Azithromycin 500 mg/250 ml NS 500 MG/250 ML BAG IVPB ONE (05:34)
[2022-05-15] MEDS ORDERED: Succinylcholine 200 mg VIAL 20 mg/ml 10 ml VIAL (200 mg) ONE (05:54)
[2022-05-15] MEDS ORDERED: Rocuronium 50 mg VIAL 10 mg/ml 5 ml VIAL (50 mg) ONE (05:54)
[2022-05-15] MEDS ORDERED: Ketamine HCL 50 mg/ml 10 ml VIAL (500 MG) ONE (05:56)
[2022-05-15] MEDS ORDERED: Propofol 10 mg/ml 100 ML BTL 0 ML ONE (05:57)
[2022-05-15 06:02] LABS: Albumin 3.8 g/dL (3.2-5.2); Albumin/Globulin Ratio 1.4 (1-3); C Reactive Protein 52.05 mg/L (<8.01); Calcium 9.4 mg/dL (8.6-10.3); Creatinine, Serum 0.83 mg/dL (0.67-1.17); Globulin 2.8 g/dL (2-4); Potassium 4.4 mmol/L (3.5-5.0); Total Bilirubin 0.4 mg/dL (0.2-1.0); Total Protein 6.6 g/dL (6.4-8.9); eGFR CKD-EPI 95.9 (>60)
[2022-05-15] MEDS ORDERED: Lorazepam PYXIS KEY PRN (06:07)
[2022-05-15] MEDS ORDERED: LORazepam 2 mg VIAL 1 ml IV PUSH ONE (06:07)
[2022-05-15 06:54] LABS: High Sensitivity Troponin 1 Hr 12 pg/mL (<20)
[2022-05-15] MEDS ORDERED: Iohexol 350 (CONTRAST) 500 ML MDV IV ONE (07:58)
[2022-05-15] MEDS ORDERED: Albuterol/Ipratropium NEB.SOL (2.5/0.5 MG) 3 ML NEB.SOLN INH PRN ×2 (11:33→11:37)
[2022-05-15] MEDS: Enoxaparin 40 MG/0.4 ML SYR SUBCUT SCH (12:43)
[2022-05-15] MEDS ORDERED: Albuterol 2.5mg/3 ml (0.083%) NEB.SOLN INH PRN (13:19)
[2022-05-15] MEDS ORDERED: Thiamine 100 MG/ML 2 ml VIAL (200 mg) IM ONE (14:05)
[2022-05-15] MEDS: FLUTICAS/UMECLI/VILANT 100-62.5-25 MDI (NF) INH SCH (14:22)
[2022-05-15 15:12] LABS: Magnesium 1.8 mg/dL (1.9-2.7)
[2022-05-15] MEDS: methylPREDNISolone SOD SUCC 40 mg/ml 1 ml VIAL IV SCH (18:33)
[2022-05-15] MEDS ORDERED: Morphine 2 MG/ML SYRINGE IV ONE (21:49)
[2022-05-16] MEDS ORDERED: cefTRIAXone 1 gm/50 mL D5W 1 GM/50 ML BAG IV SCH (05:30)
[2022-05-16] MEDS: methylPREDNISolone SOD SUCC 40 mg/ml 1 ml VIAL IV SCH ×2 (05:42→16:06)
[2022-05-16] MEDS: Azithromycin 500 mg/250 ml NS 500 MG/250 ML BAG IVPB SCH (05:43)
[2022-05-16 06:07] LABS: ABS Lymphocytes 1.7 10^3/ul (1.0-4.8); ABS Monocytes 1.2 10^3/ul (0-0.8); ABS Neutrophils 10.2 10^3/ul (1.5-7.7); Hematocrit 38 % (42-52); Hemoglobin 12.7 g/dL (14.0-18.0); Lymphocyte % 12.8 %; Mean Corpuscular HGB Conc 34 g/dL (31-36); Mean Corpuscular Hemoglobin 33 pg (27-31); Mean Corpuscular Volume 98 fL (80-94); Mean Platelet Volume 7.2 fL (7.4-10.4); Platelet Count 297 10^3/uL (150-450); Red Blood Count 3.83 10^6 /uL (4.18-5.48); Red Cell Distribution Width 13 % (10-15); White Blood Count 13.1 10^3/uL (3.5-10.8)
[2022-05-16 07:00] LABS: Blood Urea Nitrogen 32 mg/dL (6-24); CO2 Carbon Dioxide 33 mmol/L (22-32); Calcium 8.9 mg/dL (8.6-10.3); Chloride 99 mmol/L (101-111); Creatinine, Serum 0.65 mg/dL (0.67-1.17); Glucose 130 mg/dL (70-100); Magnesium 1.9 mg/dL (1.9-2.7); Sodium 138 mmol/L (135-145); eGFR CKD-EPI 103.3 (>60)
[2022-05-16 07:03] LABS: Anion Gap 6 mmol/L (2-11)
[2022-05-16 07:09] LABS: Potassium, Whole Blood 4.8 mmol/L (3.4-4.5)
[2022-05-16] MEDS: FLUTICAS/UMECLI/VILANT 100-62.5-25 MDI (NF) INH SCH (07:54)
[2022-05-16] MEDS: Multivitamins/Minerals TAB PO SCH (08:38)
[2022-05-16] MEDS: Enoxaparin 40 MG/0.4 ML SYR SUBCUT SCH (08:39)
[2022-05-16] MEDS: Nicotine PATCH 21 MG/24 HR PATCH TRANSDERM SCH ×2 (08:47→12:20)
[2022-05-16] MEDS ORDERED: Piperacillin/Tazobac ADVAN 3.375 GM in NS 0.9% 100 ml BAG 100 ML IV ONE (20:00)
[2022-05-16] MEDS ORDERED: Zosyn per Pharmacy NOTE FOLLOW UP SCH (20:00)
[2022-05-16] MEDS ORDERED: fentaNYL 100 mcg/2 ml 50 MCG/ML VIAL IV SLOW PU ONE (21:05)
[2022-05-16] MEDS ORDERED: Simethicone SUSP ORALSYR 66.66 MG/ML PO PRN (22:22)
[2022-05-17] MEDS: ZOSYN 3.375 GM Q8H per EXTENDED INFUSION IV SCH ×2 (00:01→09:07)
[2022-05-17] MEDS ORDERED: Polyethylene Glycol 3350 17 GM PACKET PO PRN (01:47)
[2022-05-17] MEDS ORDERED: Senna TAB 8.6 mg TAB PO PRN (01:47)
[2022-05-17] MEDS ORDERED: Magnesium Hydroxide LIQ 30 ML UDC PO PRN (01:47)
[2022-05-17] MEDS: methylPREDNISolone SOD SUCC 40 mg/ml 1 ml VIAL IV SCH ×2 (05:49→17:07)
[2022-05-17] MEDS: Azithromycin 500 mg/250 ml NS 500 MG/250 ML BAG IVPB SCH (05:49)
[2022-05-17 06:36] LABS: Hematocrit 39 % (42-52); Hemoglobin 13.4 g/dL (14.0-18.0); Mean Corpuscular HGB Conc 34 g/dL (31-36); Mean Corpuscular Hemoglobin 33 pg (27-31); Mean Corpuscular Volume 97 fL (80-94); Mean Platelet Volume 6.6 fL (7.4-10.4); Platelet Count 399 10^3/uL (150-450); Red Blood Count 4.02 10^6 /uL (4.18-5.48); Red Cell Distribution Width 13 % (10-15); White Blood Count 16.9 10^3/uL (3.5-10.8)
[2022-05-17 07:15] LABS: Calcium 9.6 mg/dL (8.6-10.3); Creatinine, Serum 0.83 mg/dL (0.67-1.17); Magnesium 2.3 mg/dL (1.9-2.7); Potassium 4.9 mmol/L (3.5-5.0); eGFR CKD-EPI 95.9 (>60)
[2022-05-17] MEDS: FLUTICAS/UMECLI/VILANT 100-62.5-25 MDI (NF) INH SCH (07:16)
[2022-05-17] MEDS: Enoxaparin 40 MG/0.4 ML SYR SUBCUT SCH (09:07)
[2022-05-17] MEDS: Multivitamins/Minerals TAB PO SCH (09:09)
[2022-05-17] MEDS: Nicotine PATCH 21 MG/24 HR PATCH TRANSDERM SCH (09:10)
[2022-05-17] MEDS: Albuterol 2.5mg/3 ml (0.083%) NEB.SOLN INH SCH ×3 (11:23→19:02)
[2022-05-17] MEDS ORDERED: Furosemide 20 mg/2 ml IV VIAL IV ONE (15:53)
[2022-05-18] MEDS: methylPREDNISolone SOD SUCC 40 mg/ml 1 ml VIAL IV SCH ×2 (05:31→17:27)
[2022-05-18] MEDS: FLUTICAS/UMECLI/VILANT 100-62.5-25 MDI (NF) INH SCH (07:38)
[2022-05-18] MEDS: Albuterol 2.5mg/3 ml (0.083%) NEB.SOLN INH SCH ×3 (07:53→20:38)
[2022-05-18] MEDS: Enoxaparin 40 MG/0.4 ML SYR SUBCUT SCH (08:14)
[2022-05-18] MEDS: Multivitamins/Minerals TAB PO SCH (08:14)
[2022-05-18] MEDS: Nicotine PATCH 21 MG/24 HR PATCH TRANSDERM SCH (08:15)
[2022-05-18] MEDS ORDERED: Sulfur Hexaflouride MICROSPHR 25 MG VIAL ONE (08:56)
[2022-05-18 10:06] LABS: Hematocrit 40 % (42-52); Hemoglobin 13.1 g/dL (14.0-18.0); Mean Corpuscular HGB Conc 33 g/dL (31-36); Mean Corpuscular Hemoglobin 33 pg (27-31); Mean Corpuscular Volume 98 fL (80-94); Mean Platelet Volume 6.8 fL (7.4-10.4); Platelet Count 451 10^3/uL (150-450); Red Blood Count 4.02 10^6 /uL (4.18-5.48); Red Cell Distribution Width 13 % (10-15)
[2022-05-18 10:23] LABS: ABS Basophils 0.1 10^3/ul (0-0.2); ABS Lymphocytes 1.3 10^3/ul (1.0-4.8); ABS Monocytes 0.9 10^3/ul (0-0.8); ABS Neutrophils 11.7 10^3/ul (1.5-7.7)
[2022-05-18 10:32] LABS: Calcium 9.8 mg/dL (8.6-10.3); Creatinine, Serum 0.85 mg/dL (0.67-1.17); Potassium 4.7 mmol/L (3.5-5.0); eGFR CKD-EPI 95.2 (>60)
[2022-05-18 14:02] LABS: High Sensitivity Troponin 1 Hr 11 pg/mL (<20)
[2022-05-18] MEDS: Fluticasone NASAL SPRAY 50MCG 16 gm SPRAY BTL BOTH NARES SCH (20:16)
[2022-05-19] MEDS: Albuterol 2.5mg/3 ml (0.083%) NEB.SOLN INH SCH ×5 (00:10→23:24)
[2022-05-19] MEDS: methylPREDNISolone SOD SUCC 40 mg/ml 1 ml VIAL IV SCH ×2 (05:21→16:12)
[2022-05-19 06:42] LABS: Hematocrit 39 % (42-52); Hemoglobin 13.3 g/dL (14.0-18.0); Mean Corpuscular HGB Conc 34 g/dL (31-36); Mean Corpuscular Hemoglobin 33 pg (27-31); Mean Corpuscular Volume 97 fL (80-94); Mean Platelet Volume 6.7 fL (7.4-10.4); Platelet Count 430 10^3/uL (150-450); Red Blood Count 4.05 10^6 /uL (4.18-5.48); Red Cell Distribution Width 13 % (10-15); White Blood Count 16.4 10^3/uL (3.5-10.8)
[2022-05-19 06:49] LABS: ABS Basophils 0.1 10^3/ul (0-0.2); ABS Monocytes 2.1 10^3/ul (0-0.8); ABS Neutrophils 11.3 10^3/ul (1.5-7.7); Lymphocyte % 18.1 %
[2022-05-19 06:56] LABS: C Reactive Protein 6.18 mg/L (<8.01); Calcium 9.3 mg/dL (8.6-10.3); Creatinine, Serum 0.75 mg/dL (0.67-1.17); Potassium 4.8 mmol/L (3.5-5.0); eGFR CKD-EPI 98.9 (>60)
[2022-05-19] MEDS: FLUTICAS/UMECLI/VILANT 100-62.5-25 MDI (NF) INH SCH (07:29)
[2022-05-19] MEDS ORDERED: Albuterol/Ipratropium NEB.SOL (2.5/0.5 MG) 3 ML NEB.SOLN INH ONE (09:30)
[2022-05-19] MEDS: Enoxaparin 40 MG/0.4 ML SYR SUBCUT SCH (10:56)
[2022-05-19] MEDS: Multivitamins/Minerals TAB PO SCH (10:57)
[2022-05-19] MEDS: Nicotine PATCH 21 MG/24 HR PATCH TRANSDERM SCH (10:57)
[2022-05-19] MEDS: Fluticasone NASAL SPRAY 50MCG 16 gm SPRAY BTL BOTH NARES SCH (10:58)
[2022-05-19 12:50] LABS: PCO2 Arterial 55 mmHg (35-45); PO2 Arterial 80 mmHg (80-100)
[2022-05-19] MEDS: Albuterol HFA INHALER 8 gm MDI INH PRN (15:34)
[2022-05-19] MEDS ORDERED: Al Hydrox/Mg Hydrox/Simet LIQ 30 ML UDC PO ONE (16:00)
[2022-05-19] MEDS: Acetylcysteine INH SOL (RT) 200 MG/ML 4 ML VIAL INH SCH ×2 (20:05→23:24)
[2022-05-19 23:10] LABS: Hematocrit 40 % (42-52); Hemoglobin 13.3 g/dL (14.0-18.0); Mean Corpuscular HGB Conc 34 g/dL (31-36); Mean Corpuscular Hemoglobin 33 pg (27-31); Mean Corpuscular Volume 98 fL (80-94); Mean Platelet Volume 6.4 fL (7.4-10.4); Platelet Count 469 10^3/uL (150-450); Red Blood Count 4.04 10^6 /uL (4.18-5.48); Red Cell Distribution Width 13 % (10-15); White Blood Count 20.1 10^3/uL (3.5-10.8)
[2022-05-19 23:33] LABS: High Sensitivity Troponin 1 Hr 12 pg/mL (<20)
[2022-05-20 00:25] LABS: ABS Basophils 0.1 10^3/ul (0-0.2); ABS Lymphocytes 1.3 10^3/ul (1.0-4.8); ABS Monocytes 1.7 10^3/ul (0-0.8); Lymphocyte % 6.4 %
[2022-05-20 01:15] LABS: Albumin 3.6 g/dL (3.2-5.2); Calcium 9.8 mg/dL (8.6-10.3); Total Bilirubin 0.3 mg/dL (0.2-1.0)
[2022-05-20 01:21] LABS: Albumin/Globulin Ratio 1.3 (1-3); Creatinine, Serum 0.8 mg/dL (0.67-1.17); Globulin 2.7 g/dL (2-4); Total Protein 6.3 g/dL (6.4-8.9)
[2022-05-20 01:56] LABS: Potassium 5.1 mmol/L (3.5-5.0)
[2022-05-20] MEDS: Albuterol 2.5mg/3 ml (0.083%) NEB.SOLN INH SCH ×6 (03:33→23:54)
[2022-05-20] MEDS: Acetylcysteine INH SOL (RT) 200 MG/ML 4 ML VIAL INH SCH ×8 (03:33→23:53)
[2022-05-20 06:38] LABS: Hematocrit 40 % (42-52); Hemoglobin 13.9 g/dL (14.0-18.0); Mean Corpuscular HGB Conc 35 g/dL (31-36); Mean Corpuscular Hemoglobin 34 pg (27-31); Mean Corpuscular Volume 97 fL (80-94); Mean Platelet Volume 6.6 fL (7.4-10.4); Platelet Count 476 10^3/uL (150-450); Red Cell Distribution Width 13 % (10-15); White Blood Count 21.2 10^3/uL (3.5-10.8)
[2022-05-20 07:07] LABS: Calcium 9.8 mg/dL (8.6-10.3); Creatinine, Serum 0.79 mg/dL (0.67-1.17); eGFR CKD-EPI 97.4 (>60)
[2022-05-20 07:08] LABS: Potassium 5.6 mmol/L (3.5-5.0)
[2022-05-20] MEDS: FLUTICAS/UMECLI/VILANT 100-62.5-25 MDI (NF) INH SCH (07:46)
[2022-05-20 08:01] LABS: ABS Basophils 0.1 10^3/ul (0-0.2); ABS Lymphocytes 2.9 10^3/ul (1.0-4.8); ABS Monocytes 2.3 10^3/ul (0-0.8); ABS Neutrophils 15.9 10^3/ul (1.5-7.7); Eosinophil % 0.1 %; Lymphocyte % 13.8 %
[2022-05-20] MEDS: Multivitamins/Minerals TAB PO SCH (10:06)
[2022-05-20] MEDS: Nicotine PATCH 21 MG/24 HR PATCH TRANSDERM SCH (10:08)
[2022-05-20] MEDS: Enoxaparin 40 MG/0.4 ML SYR SUBCUT SCH (10:08)
[2022-05-20] MEDS: Fluticasone NASAL SPRAY 50MCG 16 gm SPRAY BTL BOTH NARES SCH (10:09)
[2022-05-20] MEDS: Albuterol/Ipratropium NEB.SOL (2.5/0.5 MG) 3 ML NEB.SOLN INH PRN ×3 (10:13→17:31)
[2022-05-20] MEDS ORDERED: SODIUM ZIRCONIUM CYCLOSILICATE 10 GM PACKET PO ONE (11:19)
[2022-05-20] MEDS: Piperacillin/Tazobac ADVAN 3.375 GM in NS 0.9% 100 ml BAG 100 ML IV SCH ×2 (15:11→22:10)
[2022-05-20] MEDS: Albuterol HFA INHALER 8 gm MDI INH PRN (20:40)
[2022-05-21] MEDS: Albuterol 2.5mg/3 ml (0.083%) NEB.SOLN INH SCH ×6 (02:16→23:54)
[2022-05-21] MEDS: Acetylcysteine INH SOL (RT) 200 MG/ML 4 ML VIAL INH SCH ×2 (02:16→07:38)
[2022-05-21] MEDS: Piperacillin/Tazobac ADVAN 3.375 GM in NS 0.9% 100 ml BAG 100 ML IV SCH ×3 (04:16→20:29)
[2022-05-21] MEDS: FLUTICAS/UMECLI/VILANT 100-62.5-25 MDI (NF) INH SCH (07:38)
[2022-05-21] MEDS: Multivitamins/Minerals TAB PO SCH (08:01)
[2022-05-21] MEDS: Nicotine PATCH 21 MG/24 HR PATCH TRANSDERM SCH (08:01)
[2022-05-21] MEDS: Enoxaparin 40 MG/0.4 ML SYR SUBCUT SCH (08:02)
[2022-05-21] MEDS: Fluticasone NASAL SPRAY 50MCG 16 gm SPRAY BTL BOTH NARES SCH (08:03)
[2022-05-21] MEDS ORDERED: Acetylcysteine INH SOL (RT) 200 MG/ML 4 ML VIAL INH PRN (08:37)
[2022-05-21 09:59] LABS: ABS Eosinophils 0.1 10^3/ul (0-0.6); ABS Lymphocytes 2.2 10^3/ul (1.0-4.8); ABS Monocytes 1.1 10^3/ul (0-0.8); ABS Neutrophils 13.2 10^3/ul (1.5-7.7); Eosinophil % 0.5 %; Hematocrit 38 % (42-52); Hemoglobin 12.5 g/dL (14.0-18.0); Lymphocyte % 13.2 %; Mean Corpuscular HGB Conc 33 g/dL (31-36); Mean Corpuscular Hemoglobin 33 pg (27-31); Mean Corpuscular Volume 100 fL (80-94); Mean Platelet Volume 6.7 fL (7.4-10.4); Platelet Count 440 10^3/uL (150-450); Red Blood Count 3.84 10^6 /uL (4.18-5.48); Red Cell Distribution Width 13 % (10-15); White Blood Count 16.6 10^3/uL (3.5-10.8)
[2022-05-21 10:15] LABS: C Reactive Protein 38.83 mg/L (<8.01); Calcium 9.1 mg/dL (8.6-10.3); Creatinine, Serum 0.88 mg/dL (0.67-1.17); Potassium 3.9 mmol/L (3.5-5.0); eGFR CKD-EPI 94.2 (>60)
[2022-05-22] MEDS: Albuterol 2.5mg/3 ml (0.083%) NEB.SOLN INH SCH ×2 (03:15→07:26)
[2022-05-22] MEDS: Piperacillin/Tazobac ADVAN 3.375 GM in NS 0.9% 100 ml BAG 100 ML IV SCH ×2 (04:14→12:03)
[2022-05-22 07:19] LABS: ABS Eosinophils 0.1 10^3/ul (0-0.6); ABS Lymphocytes 2.8 10^3/ul (1.0-4.8); ABS Monocytes 1.3 10^3/ul (0-0.8); ABS Neutrophils 11.3 10^3/ul (1.5-7.7); Eosinophil % 0.8 %; Hematocrit 34 % (42-52); Hemoglobin 11.6 g/dL (14.0-18.0); Lymphocyte % 17.9 %; Mean Corpuscular HGB Conc 34 g/dL (31-36); Mean Corpuscular Hemoglobin 34 pg (27-31); Mean Corpuscular Volume 100 fL (80-94); Mean Platelet Volume 6.6 fL (7.4-10.4); Platelet Count 414 10^3/uL (150-450); Red Blood Count 3.45 10^6 /uL (4.18-5.48); Red Cell Distribution Width 13 % (10-15); White Blood Count 15.6 10^3/uL (3.5-10.8)
[2022-05-22] MEDS: FLUTICAS/UMECLI/VILANT 100-62.5-25 MDI (NF) INH SCH (07:27)
[2022-05-22 07:35] LABS: Calcium 8.7 mg/dL (8.6-10.3); Creatinine, Serum 0.9 mg/dL (0.67-1.17); Potassium 4.3 mmol/L (3.5-5.0); eGFR CKD-EPI 93.6 (>60)
[2022-05-22] MEDS: Multivitamins/Minerals TAB PO SCH (09:29)
[2022-05-22] MEDS: Enoxaparin 40 MG/0.4 ML SYR SUBCUT SCH (09:30)
[2022-05-22] MEDS: Fluticasone NASAL SPRAY 50MCG 16 gm SPRAY BTL BOTH NARES SCH (09:32)
[2022-05-22] MEDS: Nicotine PATCH 21 MG/24 HR PATCH TRANSDERM SCH (09:34)
[2022-05-22] MEDS ORDERED: Albuterol 2.5mg/3 ml (0.083%) NEB.SOLN INH SCH (13:00)
[2022-05-22 13:47] VITALS: BP 124/62
== END 2022-05-22 16:20 | disposition left against medical advice (07) | DRG 190 ==
LOC: ED 04:12 → SUATTDRO 11:11 → EDHOLD 11:11 → ICU 21:12 → MEDTELE 05-17 03:24
PROVIDERS: ADMIT Internal Medicine Critical Care Medicine; ATTEND Hospitalist

== ENCOUNTER 2022-10-19 11:52 | Inpatient (IN) ==
[2022-10-19] MEDS ORDERED: Albuterol/Ipratropium NEB.SOL (2.5/0.5 MG) 3 ML NEB.SOLN INH ONE (11:56)
[2022-10-19] MEDS ORDERED: Magnesium Sulfate 2 gm BAG 2 GM/50 ML BAG IVPB ONE (11:56)
[2022-10-19] MEDS ORDERED: methylPREDNISolone SOD SUCC 125 mg 2 ML VIAL IV ONE (11:56)
[2022-10-19] MEDS ORDERED: Albuterol 2.5mg/3 ml (0.083%) NEB.SOLN INH ONE ×4 (11:58→16:00)
[2022-10-19 12:22] LABS: PO2 Arterial 301 mmHg (80-100)
[2022-10-19 12:22] LABS: Hematocrit 46.6 % (38-53); Hemoglobin 15.4 g/dL (13.2-16.3); Mean Corpuscular Hemoglobin 31.9 pg (27-33); Mean Corpuscular Volume 96.5 fL (80-97); Mean Platelet Volume 7.4 fL (7.5-11.2); Platelet Count 375 10^3/uL (150-450); Red Blood Count 4.82 10^6/uL (4.06-5.63); Red Cell Distribution Width 14.5 % (12-17); White Blood Count 13.5 10^3/uL (3.6-10.2)
[2022-10-19 12:23] LABS: PCO2 Arterial 78 mmHg (35-45)
[2022-10-19] MEDS ORDERED: LORazepam 2 mg VIAL 1 ml IV PUSH ONE ×3 (12:51→18:50)
[2022-10-19] MEDS ORDERED: Lorazepam PYXIS KEY PRN ×3 (12:51→17:45)
[2022-10-19 12:55] LABS: ABS Lymphocytes 2.4 10^3/uL (1.0-4.8); ABS Monocytes 2.1 10^3/uL (0.0-1.1); ABS Nucleated RBC 0.01 10^3/ul; Lymphocyte % 17.5 %
[2022-10-19 13:07] LABS: Albumin 4.5 g/dL (3.2-5.2); Albumin/Globulin Ratio 1.7 (1-3); Calcium 10.5 mg/dL (8.6-10.3); Creatinine, Serum 0.72 mg/dL (0.67-1.17); Globulin 2.7 g/dL (2-4); Potassium 5.2 mmol/L (3.5-5.0); Total Bilirubin 0.4 mg/dL (0.2-1.0); Total Protein 7.2 g/dL (6.4-8.9); eGFR CKD-EPI 99.5 (>60)
[2022-10-19 13:29] LABS: PO2 Arterial 64 mmHg (80-100)
[2022-10-19 13:35] LABS: PCO2 Arterial 80 mmHg (35-45)
[2022-10-19] MEDS ORDERED: Albuterol/Ipratropium NEB.SOL (2.5/0.5 MG) 3 ML NEB.SOLN INH PRN (15:13)
[2022-10-19] MEDS ORDERED: hydrALAZINE 20 mg/ml 1 ML Vial IV IV SLOW PU ONE (15:17)
[2022-10-19] MEDS ORDERED: Albuterol (2.5 MG) 0.5 % CONC 0.5 ML NEB.SOLN INH ONE (15:53)
[2022-10-19] MEDS ORDERED: LORazepam 2 mg VIAL 1 ml IV PUSH PRN ×2 (15:56→17:50)
[2022-10-19] MEDS ORDERED: Enoxaparin 40 MG/0.4 ML SYR SUBCUT SCH (16:00)
[2022-10-19] MEDS ORDERED: Dexmedetomidine 1,000 MCG in NS 0.9% 250 ml 240 ML IV SCH (16:00)
[2022-10-19] MEDS ORDERED: LORazepam 2 mg VIAL 1 ml ONE ×2 (16:36→18:50)
[2022-10-19] MEDS ORDERED: hydrALAZINE 20 mg/ml 1 ML Vial IV IV SLOW PU PRN (16:37)
[2022-10-19] MEDS: LORazepam 2 mg VIAL 1 ml IV PUSH PRN ×2 (16:44→17:24)
[2022-10-19] MEDS ORDERED: Haloperidol 5 mg/ml SDV IV/IM 5 MG/ML AMP ONE (17:31)
[2022-10-19] MEDS ORDERED: Haloperidol 5 mg/ml SDV IV/IM 5 MG/ML AMP IV SLOW PU PRN (17:46)
[2022-10-19] MEDS ORDERED: Lactated Ringers 1000 ml BAG 1,000 ML IV ONE (17:46)
[2022-10-19] MEDS ORDERED: Lactated Ringers 1000 ml BAG IV.FLUID IV ONE ×2 (17:48→18:05)
[2022-10-19] MEDS ORDERED: Norepinephrine 16MCG/ML BAGD5W 4,000 MCG/250 ML BAG IV ONE (18:29)
[2022-10-19] MEDS: Norepinephrine 16MCG/ML IVPREMIX 4,000 MCG/250 ML D5W BAG IV SCH (18:56)
[2022-10-19] MEDS ORDERED: Norepinephrine 16MCG/ML BAG NS 4,000 MCG/250 ML BAG IV SCH (19:00)
[2022-10-19] MEDS: Albuterol/Ipratropium NEB.SOL (2.5/0.5 MG) 3 ML NEB.SOLN INH SCH ×2 (19:12→23:21)
[2022-10-19] MEDS: Cefepime 2 GM in Dextrose 2 GM/50 ML BAG IV SCH (19:48)
[2022-10-19 21:48] LABS: PCO2 Arterial 49 mmHg (35-45); PO2 Arterial 126 mmHg (80-100)
[2022-10-20] LABS: Urine Appearance Clear; Urine Bilirubin Negative (Negative); Urine Blood Negative (Negative); Urine Color Yellow; Urine Glucose Negative (Negative); Urine Ketones Negative (Negative); Urine Nitrite Negative (Negative); Urine Protein 1+(30 mg/dL) (Negative); Urine Urobilinogen Negative (Negative)
[2022-10-20 00:01] LABS: Urine Bacteria Absent (Absent); Urine Red Blood Cell Trace(0-2/hpf) (Absent); Urine White Blood Cell Trace(0-5/hpf) (Absent)
[2022-10-20] MEDS: Cefepime 2 GM in Dextrose 2 GM/50 ML BAG IV SCH ×2 (01:07→07:33)
[2022-10-20] MEDS: Norepinephrine 16MCG/ML IVPREMIX 4,000 MCG/250 ML D5W BAG IV SCH (03:17)
[2022-10-20] MEDS: Albuterol/Ipratropium NEB.SOL (2.5/0.5 MG) 3 ML NEB.SOLN INH SCH ×5 (03:21→19:17)
[2022-10-20] MEDS ORDERED: Morphine 2 MG/ML SYRINGE IV ONE ×3 (05:24→09:05)
[2022-10-20] MEDS ORDERED: Morphine 2 MG/ML SYRINGE ONE ×2 (05:27→09:05)
[2022-10-20 05:37] LABS: ABS Monocytes 1.6 10^3/uL (0.0-1.1); ABS Neutrophils 6.4 10^3/uL (1.5-7.6); Hematocrit 39.1 % (38-53); Hemoglobin 13.1 g/dL (13.2-16.3); Lymphocyte % 10.9 %; Mean Corpuscular Hemoglobin 32.5 pg (27-33); Mean Corpuscular Hgb Conc 33.4 g/dL (31-36); Mean Corpuscular Volume 97.2 fL (80-97); Mean Platelet Volume 7.1 fL (7.5-11.2); Platelet Count 284 10^3/uL (150-450); Red Blood Count 4.03 10^6/uL (4.06-5.63); Red Cell Distribution Width 14.5 % (12-17); White Blood Count 9.1 10^3/uL (3.6-10.2)
[2022-10-20 06:26] LABS: Calcium 9.7 mg/dL (8.6-10.3); Creatinine, Serum 0.78 mg/dL (0.67-1.17); Magnesium 2.2 mg/dL (1.9-2.7); Potassium 4.5 mmol/L (3.5-5.0); eGFR CKD-EPI 97.1 (>60)
[2022-10-20] MEDS: FLUTICAS/UMECLI/VILANT 100-62.5-25 MDI (NF) INH SCH (07:13)
[2022-10-20] MEDS: methylPREDNISolone SOD SUCC 40 mg/ml 1 ml VIAL IV SCH ×2 (07:32→16:33)
[2022-10-20] MEDS ORDERED: Lactated Ringers 1000 ml BAG 1,000 ML IV ONE ×2 (08:08→09:11)
[2022-10-20] MEDS ORDERED: methylPREDNISolone SOD SUCC 40 mg/ml 1 ml VIAL IV SCH (09:00)
[2022-10-20] MEDS ORDERED: Morphine 10 MG/ML VIAL (1 ml) IV ONE (09:01)
[2022-10-20] MEDS: Pantoprazole VIAL 40 MG VIAL IV SCH (09:19)
[2022-10-20] MEDS ORDERED: Nicotine PATCH 21 MG/24 HR PATCH TRANSDERM PRN (10:00)
[2022-10-20] MEDS ORDERED: Ondansetron 4 mg VIAL 2 MG/ML 2 ml VIAL ONE (10:40)
[2022-10-20] MEDS ORDERED: Ondansetron 4 mg VIAL 2 MG/ML 2 ml VIAL IV PRN (10:40)
[2022-10-20 12:23] VITALS: BP 157/90
[2022-10-20] MEDS ORDERED: LORazepam 2 mg VIAL 1 ml IV PUSH PRN (12:28)
[2022-10-20] MEDS ORDERED: Lorazepam PYXIS KEY PRN ×2 (12:28→14:36)
[2022-10-20] MEDS ORDERED: Morphine 2 MG/ML SYRINGE IV PRN (12:28)
[2022-10-20] MEDS: Morphine 2 MG/ML SYRINGE IV PRN (13:52)
[2022-10-20] MEDS ORDERED: LORazepam 2 mg VIAL 1 ml IV PUSH ONE (14:37)
[2022-10-20] MEDS ORDERED: Morphine PCA ADULT 5 MG/ML 30 ML PCA SCH (15:30)
[2022-10-20] MEDS ORDERED: Albuterol/Ipratropium NEB.SOL (2.5/0.5 MG) 3 ML NEB.SOLN INH PRN (19:16)
[2022-10-21] MEDS: methylPREDNISolone SOD SUCC 40 mg/ml 1 ml VIAL IV SCH ×2 (05:40→11:45)
[2022-10-21] MEDS ORDERED: Lorazepam PYXIS KEY PRN (07:14)
[2022-10-21] MEDS ORDERED: LORazepam 2 mg VIAL 1 ml IV PUSH PRN (07:24)
[2022-10-21] MEDS ORDERED: LORazepam 2 mg VIAL 1 ml IV PUSH SCH (08:00)
[2022-10-21] MEDS: Morphine PCA ADULT 5 MG/ML 30 ML PCA SCH ×2 (08:53→14:28)
[2022-10-21] MEDS: Pantoprazole VIAL 40 MG VIAL IV SCH (10:10)
[2022-10-21] MEDS: FLUTICAS/UMECLI/VILANT 100-62.5-25 MDI (NF) INH SCH (11:33)
[2022-10-21] MEDS: Morphine 2 MG/ML SYRINGE IV PRN (13:54)
[2022-10-21] MEDS ORDERED: methylPREDNISolone SOD SUCC 40 mg/ml 1 ml VIAL IV SCH (14:00)
== END 2022-10-21 18:00 | disposition expired | DRG 871 ==
LOC: ED 11:52 → EDHOLD 14:54 → ICU 15:54
PROVIDERS: ADMIT Internal Medicine; ATTEND Internal Medicine